=== PATIENT | female | born 1965 | race African-American/Black ===

== ENCOUNTER → 2020-04-20 | Outpatient (CLI) | payer OTHER ==
[~2020-04-20] MED LIST: HYDR-2761 PO
== END | disposition home or self-care (01) ==
LOC: LAB 14:26
PROVIDERS: ATTEND Orthopaedic Surgery
DX: Z01.818 Encounter for other preprocedural examination (principal); Z11.59 Encounter for screening for other viral diseases; S83.511A Sprain of anterior cruciate ligament of right knee, initial encounter; S83.231A Complex tear of medial meniscus, current injury, right knee, initial encounter; X58.XXXA Exposure to other specified factors, initial encounter; Y93.89 Activity, other specified; Y92.89 Other specified places as the place of occurrence of the external cause; Y99.8 Other external cause status
CPT/HCPCS: U0003-CS

== ENCOUNTER 2020-04-24 05:50 | Day surgery (SDC) | payer OTHER ==
[~2020-04-24] VITALS: Ht 174 cm; Wt 96.6 kg
[2020-04-24] MEDS ORDERED: BUPIVACAINE-EPI 0.25%-1:200000 MPF 30 ML VIAL. ONE ×2 (06:52→09:10)
[2020-04-24] MEDS ORDERED: EPINEPHrine VIAL 30 MG/30 ML VIAL ONE (06:52)
[2020-04-24] MEDS ORDERED: IV RINGERS,LACTATED 1000ML 1,000 ML IV SCH (07:00)
[2020-04-24] MEDS ORDERED: HYDROmorphone 2 MG/ML VIAL IV PRN (07:00)
[2020-04-24] MEDS ORDERED: PROCHLORPERAZINE 10 MG/2 ML VIAL. IV PRN (07:00)
[2020-04-24] MEDS ORDERED: MORPHINE SULFATE 2 MG/ML VIAL. IV PRN (07:00)
[2020-04-24] MEDS ORDERED: fentaNYL PF VIAL 100 MCG/2 ML VIAL IV PRN (07:00)
[2020-04-24] MEDS ORDERED: ONDANSETRON PF 4 MG/2 ML VIAL. IV PRN (07:00)
[2020-04-24] MEDS ORDERED: fentaNYL PF VIAL 250 MCG/5 ML VIAL ONE (07:02)
[2020-04-24] MEDS ORDERED: ONDANSETRON PF 4 MG/2 ML VIAL. ONE ×2 (08:03)
[2020-04-24] MEDS ORDERED: DEXAMETHASONE SOD PHOS 4 MG/ML VIAL ONE (08:04)
[2020-04-24] MEDS ORDERED: LIDOCAINE 2% PF 5 ML VIAL. ONE (08:04)
[2020-04-24] MEDS ORDERED: PROPOFOL 10 MG/ML (20ML) VIAL. IV ONE (08:04)
[2020-04-24] MEDS ORDERED: SEVOFLURANE > 120 MINUTES. IH ONE (08:04)
[2020-04-24] MEDS ORDERED: GENTAMICIN SULFATE 80 MG/2 ML VIAL. ONE (08:23)
[2020-04-24] MEDS ORDERED: BACITRACIN 50,000 UNIT VIAL. IRR ONE (08:27)
[2020-04-24] MEDS ORDERED: ceFAZolin 2GM PREMIX 2 GM/50 ML BAG IV ONE (09:00)
[2020-04-24] MEDS ORDERED: ceFAZolin SODIUM IV Push 1 GM VIAL. IVP ONE ×2 (09:37)
[2020-04-24] MEDS ORDERED: fentaNYL PF VIAL 100 MCG/2 ML VIAL ONE (10:16)
[2020-04-24] MEDS: fentaNYL PF VIAL 100 MCG/2 ML VIAL IV PRN ×2 (10:20→10:30)
[2020-04-24] MEDS ORDERED: KETOROLAC 30 MG/ML VIAL. ONE (10:26)
--- NOTE | 2020-04-24 10:29 | PDOC ---
Date and Time Uneventful general anesthesia until emergence. Patient bit done on LMA and 2 teeth from a bridge came out. Not related to LMA placement or removal. D/W patient. Current Medications Current Medications Ondansetron HCl (Zofran) 4 mg PRN Q6HRS PRN IV NAUSEA/VOMITING; Start 04/24/20 at 07:00; Stop 04/25/20 at 06:59 Fentanyl Citrate (Fentanyl 2ml Vial) 25 mcg PRN Q5MIN PRN IV MILD PAIN 1-3; Start 04/24/20 at 07:00; Stop 04/25/20 at 06:59 Fentanyl Citrate (Fentanyl 2ml Vial) 50 mcg PRN Q5MIN PRN IV MODERATE TO SEVERE PAIN; Start 04/24/20 at 07:00; Stop 04/25/20 at 06:59 Morphine Sulfate (Morphine Sulfate) 1 mg PRN Q10MIN PRN IV SEVERE PAIN 7-10; Start 04/24/20 at 07:00; Stop 04/25/20 at 06:59 Ringer's Solution 1,000 ml @ 30 mls/hr Q24H IV Last administered on 04/24/20at 06:34; Start 04/24/20 at 07:00; Stop 04/24/20 at 18:59 Hydromorphone HCl (Dilaudid) 0.5 mg PRN Q10MIN PRN IV SEV PAIN, Second choice; Start 04/24/20 at 07:00; Stop 04/25/20 at 06:59 Prochlorperazine Edisylate (Compazine) 5 mg PACU PRN PRN IV NAUSEA, MRX1; Start 04/24/20 at 07:00; Stop 04/25/20 at 06:59 Cefazolin Sodium/ Dextrose 50 ml @ 100 mls/hr 1X PREOP PRN IV PRIOR TO PROCEDURE Last administered on 04/24/20at 07:24; Start 04/24/20 at 06:00; Stop 04/24/20 at 18:00 Epinephrine HCl (Adrenalin) 30 mg STK-MED ONCE .ROUTE Last administered on 04/24/20at 07:41; Start 04/24/20 at 06:52; Stop 04/24/20 at 06:52; Status DC Bupivacaine HCl/ Epinephrine Bitart (Sensorcaine-Epi 0.25%-1:524061 Mpf) 30 ml STK-MED ONCE .ROUTE Last administered on 04/24/20at 07:41; Start 04/24/20 at 06:52; Stop 04/24/20 at 06:52; Status DC Fentanyl Citrate (Fentanyl 5ml Vial) 250 mcg STK-MED ONCE .ROUTE ; Start 04/24/20 at 07:02; Stop 04/24/20 at 07:02; Status DC Ondansetron HCl (Zofran) 4 mg STK-MED ONCE .ROUTE ; Start 04/24/20 at 08:03; Stop 04/24/20 at 08:03; Status DC Ondansetron HCl (Zofran) 4 mg STK-MED ONCE .ROUTE ; Start 04/24/20 at 08:03; Stop 04/24/20 at 08:03; Status DC Dexamethasone Sodium Phosphate (Decadron) 4 mg STK-MED ONCE .ROUTE ; Start 04/24/20 at 08:04; Stop 04/24/20 at 08:04; Status DC Lidocaine HCl (Lidocaine Pf 2% Vial) 5 ml STK-MED ONCE .ROUTE ; Start 04/24/20 at 08:04; Stop 04/24/20 at 08:04; Status DC Propofol (Diprivan) 200 mg STK-MED ONCE IV ; Start 04/24/20 at 08:04; Stop 04/24/20 at 08:04; Status DC Sevoflurane (Ultane) 90 ml STK-MED ONCE IH ; Start 04/24/20 at 08:04; Stop 04/24/20 at 08:04; Status DC Gentamicin Sulfate (Gentamicin Sulfate) 80 mg STK-MED ONCE .ROUTE Last administered on 04/24/20at 07:41; Start 04/24/20 at 08:23; Stop 04/24/20 at 08:24; Status DC Bacitracin (Bacitracin) 50,000 unit STK-MED ONCE IRR Last administered on 04/24/20at 07:41; Start 04/24/20 at 08:27; Stop 04/24/20 at 08:27; Status DC Bupivacaine HCl/ Epinephrine Bitart (Sensorcaine-Epi 0.25%-1:134689 Mpf) 30 ml STK-MED ONCE .ROUTE Last administered on 04/24/20at 07:41; Start 04/24/20 at 09:10; Stop 04/24/20 at 09:11; Status DC Cefazolin Sodium (Ancef) 1 gm STK-MED ONCE IVP ; Start 04/24/20 at 09:37; Stop 04/24/20 at 09:38; Status DC Cefazolin Sodium (Ancef) 1 gm STK-MED ONCE IVP ; Start 04/24/20 at 09:37; Stop 04/24/20 at 09:38; Status DC Fentanyl Citrate (Fentanyl 2ml Vial) 100 mcg STK-MED ONCE .ROUTE ; Start 04/24/20 at 10:16; Stop 04/24/20 at 10:17; Status DC Ketorolac Tromethamine (Toradol 30mg Vial) 30 mg STK-MED ONCE .ROUTE ; Start 04/24/20 at 10:26; Stop 04/24/20 at 10:26; Status DC Active Scripts Active Reported Hydrocodone-Apap 5-325 (Hydrocodone Bit/Acetaminophen) 1 Tab Tablet 1 Tab PO PRN Q6HRS PRN LAST VITALS Vital Signs Date Time Temp Pulse Resp B/P (MAP) Pulse Ox O2 Delivery O2 Flow Rate FiO2 04/24/20 06:22 97.2 98 20 147/100 96 Room Air 97.2 BLANCA WEBB MD Apr 24, 2020 10:29
[2020-04-24] MEDS ORDERED: KETOROLAC 30 MG/ML VIAL. IV PRN (10:30)
[2020-04-24] MEDS ORDERED: diazePAM 5 MG TABLET PO ONE (10:45)
[2020-04-24 11:05] VITALS: BP 161/95
[2020-04-24] MEDS ORDERED: LIDOCAINE 1% PF 2 ML VIAL. ONE (11:54)
[2020-04-24] MEDS ORDERED: BUPIVACAINE MPF 0.5% 30 ML VIAL. ONE (11:54)
[2020-04-24] MEDS ORDERED: EPINEPHrine 1 MG/ML VIAL ONE (11:54)
[2020-04-24] MEDS ORDERED: DEXAMETHASONE SOD PHOS 20 MG/5 ML VIAL. ONE (11:54)
--- NOTE | 2020-04-24 12:08 | PDOC4 ---
Operative Note Operative Note Date of Procedure: April 24, 2020 Pre-Op Diagnosis: * Right knee anterior cruciate ligament tear * Right knee medial meniscus tear Post-Op Diagnosis: * Right knee anterior cruciate ligament tear * Right knee medial meniscus tear, complex tear * Right knee lateral meniscus tear, complex tear Procedure: * Right knee arthroscopic assisted anterior cruciate ligament reconstruction using ipsilateral quadrupled hamstrings autograft CPT 04460 * Right knee arthroscopy with medial AND lateral meniscectomy CPT 08611 Surgeon: Anthony Kahn MD Computer Drafter: SEMAJ Hernandez Anesthesia: General EBL: 25 mL Specimens Obtained: none Complications: indadvertent graft contamination Drains: none Tourniquet: 100 minutes at 300 mmHg Indications for Procedure: This patient is a 54 -year-old with a right knee injury, pain and instability. An injury occurred on 03/29/20 when she describes hearing a loud pop in her diaz when walking out of her trailer, and subsequently developed swelling, and limp. We reviewed a photo on 03/29/20 that showed a massive knee effusion. MRI shows an anterior cruciate ligament tear, and medial meniscus tear. She and I discussed options for treatment. Despite bracing she reports a sensation of instability. She has minimal arthritis radiographically but has an unstable knee after ACL tear. We discussed operative versus nonoperative management. Due to persistent instability and meniscal pathology, I recommended ACL reconstruction and probable meniscectomy. We talked about the risks of infection neurovascular injury bleeding blood clots development of osteoarthritis, stiffness, or other potential surgical or anesthetic complications. To prevent stiffness I had her do some preoperative physical therapy and she is regained nearly all of her motion. We discussed graft choices such as bone tendon bone autograft, hamstring autograft, or allograft. Primary allograft has a high failure rate, and I do not recommend it for most ACL reconstructions. In her case, I believe the hamstring autograft would give satisfactory result with easier and less painful recovery then bone tendon bone autograft. All of her questions about surgery were answered and she desires to proceed with hamstring ACL reconstruction and meniscectomy. Written consent was obtained. Procedure in Detail: The patient was identified in the preoperative holding area. The correct right lower extremity was marked by me. The patient was taken to the operating room where general anesthetic was used. The patient was positioned supine on the operating table. A tourniquet was applied to the upper portion of the limb. Preoperative antibiotics were given intravenously. A timeout procedure was performed. 20 mL's of 0.25% bupivacaine with epinephrine was injected after sterile prep with ChloraPrep into the knee joint and into the anteromedial tibia at the location of the proposed graft harvest. The limb was prepared in sterile fashion circumferentially from the tourniquet to the toes. Sterile waterproof arthroscopy drapes were applied. An impervious stockinette was used over the lower limb, and a Coban was used over the stockinette. The hamstring autograft was harvested first before the tourniquet was inflated. A sick centimeter longitudinal incision was made over the Pez anserine bursa. Sharp dissection was used and Bovie electrocautery was used as needed for hemostasis. The sartorius fascia was elevated. The semi-tendinosis and gracilis tendons were easily identified and stripped up the thigh with a [employer] tendon harvester. These were taken to the back table where they were further prepared by my inventory assistant Marcel. He whipstitched all 4 free ends of the tendons with #2 FiberWire suture at my instruction. I proceeded with the arthroscopy. An Esmarch bandage was used to exsanguinate the limb. The tourniquet was inflated to 300 mmHg. Lateral and medial arthroscopy portals were established. 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 The medial joint line showed internal surface whitewhite zone complex tear of the posterior horn. Partial meniscectomy was performed with basket forceps and the motorized shaver back to a smooth stable base. There is chondromalacia Outerbridge grade 3 over a large surface tearing of the medial femoral condyle, but no exposed bone. Shaving chondroplasty was performed. The intercondylar notch showed a high-grade ACL tear as expected. The lateral joint line showed a posterior horn complex tear of the lateral meniscus which extended into the anterior horn. Meniscectomy was performed with basket forceps and the motorized shaver back to a smooth stable base. There is chondromalacia Outerbridge grade 2 on the lateral tibia. Shaving chondroplasty was performed laterally as well. Next, I was instructing Marcel on placing the folded grafts over a #2 FiberWire suture for eventual implantation. I inadvertently dropped one of the grafts on the floor, I believe this was the gracilis tendon graft. I immediately picked this up by grasping the sutures only, and it was on the floor for about 5 seconds, and I placed the sutured graft into a sterile basin which was immedia tely irrigated with sterile saline. I changed my outer gloves. I then did sequential irrigation of the graft with 4% chlorhexidine which was soaked, then additional saline rinse, then new saline with bacitracin and gentamicin soak, and later another saline rinse. The graft and sutures were soaked and rinsed for 10 minutes. I changed my outer gloves a second time. I proceeded with completing the graft preparation. The 2 graft tendons were folded over the single #2 FiberWire suture. #2-0 Vicryl was used to whipstitch the folded ends, for a distance of 30 mm from the folded ends. The 4 remaining tails remained as individual grafts, so the final preparation is a 1-headed 4- tailed graft. The graft was measured and would fit snugly through an 8 mm sizer but not fit through a 7.5 mm sizer. The graft had been marked with a marker at 30 mm from the folded ends. The graft was kept moistened with the saline and antibiotic solution on a laparotomy sponge, and kept pretensioned on the Graftmaster device, until implantation. A motorized shaver, a curette, and motorized bur were used to perform a notchplasty and roof plasty. The [id number] position was identified, and the residents ridge was smoothed with the bur. A tibial guide was used for the tibial tunnel planning. Landmarks included the trailing edge of the anterior horn of the lateral meniscus, the medial tibial spine, and 7 mm in front of the posterior cruciate ligament to determine the correct location of the ACL footprint. The 55 degree angle guide was used, and a guidepin was placed through the prior tibial incision into the center of the old ACL footprint, using the above landmarks. An 8 mm fluted cannulated reamer was used to create the tibial tunnel over the guidepin. The entry to the joint was smoothed with a rasp. Excess soft tissue and bone was removed with a shaver. Excess soft tissue was removed from the tibial cortex entry of the bone tunnel. A plug was placed. A [place] awl was used to spike the femur at the proposed location of the femoral tunnel. With the knee at 90 degrees of flexion, identified the noon position, and then spiked the femur at the 10:15 o'clock position, and also 5 mm from the articular surface along the lateral intercondylar notch. I then had Marcel hold the knee in maximal hyperflexion. A 4.5 mm drill bit was used through the medial portal to create the entry dispatcher ship pilot hole. All of the work for the femoral tunnel was done through the medial portal to get the correct femoral tunnel location. A freehand Beath pin was now placed through the dispatcher ship pilot hole, and after the position had been confirmed an 8 mm acorn cannulated reamer was used to create the femoral socket 30 mm in depth. The U-shaped guide for the Mitek rigid fix crosspin fixation system was used and cannulas were placed through small incisions of the skin of the lateral thigh. The U-shaped guide was removed, and the position of the cannulas crossing the femoral tunnel was confirmed arthroscopically. The Beath pin was used to pull a Prolene suture from the medial portal through the femoral tunnel and out the skin of the lateral thigh. A loop of the Prolene was grasped through the tibial tunnel. The sutures for the graft were now able to be advanced through the tibial tunnel, across the joint, and into the femoral tunnel. The graft was now deployed and advanced into the femoral socket where it seated nicely at 30 mm of depth. The cross pins were deployed with excellent rigid fixation of the graft. Graft isometry was near perfect, there is slight tensioning in the range of 1 to 2 mm, and full hyperextension of the knee, which is considered physiologic. The 4 tails of the graft were now equally tension on the ACL graft tensioner. 15 pounds of tension was used. The large size sheath and the 7-9 mm biointerf erence bio Intrafix screw was used. Excellent rigid squeaking and fixation was obtained with secure fixation of the graft. The proximal suture was completely removed. The distal sutures were trimmed. Arthroscopic examination of the graft showed a nice taut physiologic graft, which did not capture the knee, did not prevent motion, and allowed full extension without difficulty and without impingement. Copious saline irrigation was used a final time. The incisions were closed with 2-0 Vicryl and 3 oh strata fix Monocryl. The portals were closed with 3-0 Prolene sutures. An additional 30 mL's of 0.25% bupivacaine with epinephrine was injected. Xeroform and sterile dressings were applied. The tourniquet was released. The patient tolerated the procedure well. Needle and sponge counts were correct. ANTHONY KAHN MD Apr 24, 2020 12:08
== END 2020-04-24 12:50 | disposition home or self-care (01) ==
LOC: SURG 05:50
PROVIDERS: ATTEND Orthopaedic Surgery
DX: S83.511A Sprain of anterior cruciate ligament of right knee, initial encounter (principal); S83.231A Complex tear of medial meniscus, current injury, right knee, initial encounter; S83.271A Complex tear of lateral meniscus, current injury, right knee, initial encounter; X58.XXXA Exposure to other specified factors, initial encounter; Y93.89 Activity, other specified; Y92.89 Other specified places as the place of occurrence of the external cause; Y99.8 Other external cause status; Z72.89 Other problems related to lifestyle; Z79.899 Other long term (current) drug therapy
CPT/HCPCS: 29880; 29888; A7015; C1713; C1782; J0171; J0690; J1100; J1580; J1885; J2405; J2704; J3010; J3490; J7120